=== PATIENT | male | born 1970 | race Caucasian/White ===

== ENCOUNTER → 2017-10-23 | Outpatient (CLI) | payer OTHER ==
--- NOTE | 2017-10-23 17:24 | RADIOLOGY IMAGING REPORT ---
[place] [facility] [place] Umesh Simmons : 1970 MR: [id number] V: [id number] EXAM DATE: ORDERING PHYSICIAN: DOUGLAS NAILS TECHNOLOGIST: Location: [facility] - [place] Patient: Umesh Simmons : 1970 Visit/Account:[id number] Date of Sevice: 10/23/2017 FOOT RIGHT W/O CONTRAST HISTORY: Multiple surgeries. Pain. TECHNIQUE: CT images were obtained through the right ankle and foot without intravenous contrast. 2D coronal and sagittal images obtained from the initial data. One of the following dose optimization t echniques was utilized in the performance of this exam: automated exposure control; adjustment of the mA and/or kv according to patient size; or use of iterative reconstruction technique. Specific detai ls can be referenced in the facility's radiology CT exam operational policy. CONTRAST: None COMPARISON: None. FINDINGS: Forefoot: Normal Midfoot: Moderate degenerative changes at the first-third MTP joints. Chronic appearing ossicles abelino cent to the first and second MTP joints. Moderate degenerative changes at the medial-intermediate cun eiform. Bony projection from the plantar-lateral aspect of the medial cuneiform (series 10 image 55). Mild degenerative changes at the navicular-medial cuneiform articulation.. Ankle: No acute fracture or dislocation. No significant degenerative changes. The talar dome is teodoro h in contour without evidence of osteochondral lesion. The subtalar joints are unremarkable. No joint effusion No loose body. Bohler angle is well maintained. Soft tissues: Normal Other findings: Bone island within the distal tibia. IMPRESSION: 1. Moderate degenerative changes at the first second third MTP joints. Moderate degenerative changes at the medial-intermediate cuneiform. Bony projection from the plantar-lateral aspect of the medial c uneiform. Chronic appearing ossicles adjacent to the first and second MTP joints although recommend c linical correlation for more acute trauma. Report Dictated By: Nitin Ambrocio MD at 10/23/2017 5:14 PM Report E-Signed By: Nitin Ambrocio MD at 10/23/2017 5:20 PM [id number]
== END ==
LOC: CT 15:17
PROVIDERS: ATTEND Orthopaedic Surgery
DX: M19.071 Primary osteoarthritis, right ankle and foot (principal)